=== PATIENT | male | born 1940 | race African-American/Black ===

== ENCOUNTER 2017-05-31 12:16 | Observation (INO) | payer MEDICARE ==
[~2017-05-31] VITALS: Ht 160 cm; Wt 70.0 kg
[~2017-05-31 12:16] MED LIST: BENZ1TAB61 PO; FLUP1TAB PO; MAGN64TA9 PO
[2017-05-31 13:20] LABS: MD YES; MEAN CORPUSCULAR HEMOGLOBIN 28.8 pg (27.5-34.5); MEAN CORPUSCULAR VOLUME 87.5 fL (81-97); MEAN PLATELET VOLUME 7.8 fL (7.4-10.4); PLATELET COUNT 325 x10^3/uL (130-400); RED BLOOD COUNT 4.52 x10^6/uL (4.38-5.82)
[2017-05-31 13:29] LABS: ALBUMIN 3.3 g/dL (3.4-5.0); ANION GAP 5 mmol/L (5-15); CALCIUM 8.8 mg/dL (8.5-10.1); CHLORIDE 102 mmol/L (98-107)
[2017-05-31 13:30] LABS: AMPHETAMINE SCREEN, URINE Negative (Negative); BARBITURATE SCREEN, URINE Negative (Negative); BENZODIAZEPINE SCREEN, URINE Negative (Negative); CANNABINOID SCREEN, URINE Negative (Negative); COCAINE SCREEN, URINE Negative (Negative); METHADONE SCREEN, URINE Negative (Negative); OPIATE SCREEN, URINE Negative (Negative)
[2017-05-31 13:33] LABS: ACETAMINOPHEN < 2 mcg/mL (10-30); ALANINE AMINOTRANSFERASE 10 U/L (12-78); ALKALINE PHOSPHATASE 62 U/L (45-117); BILIRUBIN,TOTAL 0.4 mg/dL (0.2-1.0); CREATININE 0.92 mg/dL (0.7-1.3); SALICYLATE LEVEL < 1.7 mg/dL (2.8-20.0); TOTAL PROTEIN 8.2 g/dL (6.4-8.2)
[2017-05-31 13:38] LABS: <PLATELET ESTIMATE> ADEQUATE; <RBC MORPHOLOGY> NORMAL; EOS#(MANUAL) 0.16 x10^3/uL (0.0-0.4); EOS% (MANUAL) 2 % (1-7); LARGE PLATELETS 1+; LYMPH#(MANUAL) 1.72 x10^3/uL (1-3.4); LYMPHS% (MANUAL) 21 % (22-44); MONOS#(MANUAL) 0.57 x10^3/uL (0.3-2.7); MONOS% (MANUAL) 7 % (2-9); SEG#(MANUAL) 5.74 x10^3/uL (1.8-6.8); SEGS% (MANUAL) 70 % (42-75)
[2017-05-31] MEDS ORDERED: LORazepam 1MG TABLET ONE (15:20)
[2017-05-31] MEDS ORDERED: LORazepam 1MG TABLET PO ONE (15:30)
[2017-05-31] MEDS ORDERED: ONDANSETRON ODT 4 MG PO PRN (19:30)
[2017-05-31] MEDS ORDERED: ACETAMINOPHEN 325 MG TABLET PO PRN (19:30)
[2017-06-01] MEDS ORDERED: ACETAMINOPHEN 325 MG TABLET ONE (09:03)
[2017-06-01 17:45] VITALS: BP 130/76
[2017-06-01] MEDS: TRAZODONE 50MG TABLET PO PRN (20:28)
[2017-06-01 20:29] VITALS: BP 146/88
[2017-06-02 07:11] VITALS: BP 125/76
[2017-06-02] MEDS ORDERED: MAGNESIUM HYDROXIDE 8%, 30ML UDC PO PRN (15:00)
[2017-06-02 18:57] VITALS: BP 124/75
[2017-06-02] MEDS: TRAZODONE 50MG TABLET PO PRN (20:56)
[2017-06-03 08:15] VITALS: BP 131/80
[2017-06-03] MEDS ORDERED: HEMORRHOIDAL OINT, 28 GM (PREP H) RC PRN (17:00)
[2017-06-03] MEDS: HYDROCORTISONE/PRAMOXINE CRM 1-1%, 30GM PR PRN (18:06)
[2017-06-03 19:33] VITALS: BP 131/81
[2017-06-03] MEDS: TRAZODONE 50MG TABLET PO PRN ×2 (20:03→20:46)
[2017-06-04 08:05] VITALS: BP 144/89
[2017-06-04] MEDS ORDERED: POTA10TA PO (08:20)
[2017-06-04] MEDS ORDERED: DONE5TAB52 PO (08:20)
[2017-06-04] MEDS ORDERED: FLUP10TA PO (08:20)
[2017-06-04] MEDS ORDERED: BENZ1TAB61 PO (08:20)
[2017-06-04] MEDS: HYDROCORTISONE/PRAMOXINE CRM 1-1%, 30GM PR PRN (10:08)
[2017-06-04] MEDS ORDERED: ZOLP5TAB PO (13:07)
== END 2017-06-04 13:15 ==
LOC: ED 14:26 → INTOOBSV 14:53 → EDIP 14:53 → 3E 06-01 16:37
PROVIDERS: ADMIT Internal Medicine Pulmonary Disease; ATTEND Internal Medicine Pulmonary Disease
DX: R45.851 Suicidal ideations (principal); F20.9 Schizophrenia, unspecified; F33.3 Major depressive disorder, recurrent, severe with psychotic symptoms; G89.29 Other chronic pain; M25.562 Pain in left knee; F17.210 Nicotine dependence, cigarettes, uncomplicated; Z59.0 Homelessness
CPT/HCPCS: 36415; 80053; 80307; 80329; 85025; 99285; G0378; G0480